=== PATIENT | female | born 1970 | race Caucasian/White ===

== ENCOUNTER 2018-05-12 13:49 | Inpatient (IN) | payer MEDICAID, OTHER ==
[2018-05-12 13:55] VITALS: BMI 32.2
--- NOTE | 2018-05-12 14:13 | ED PDOC ---
Arrival/HPI - General Time Seen by Provider: 05/12/18 14:07 Historian: Patient - History of Present Illness Narrative History of Present Illness (Text): 05/12/18 14:12 47 year old female, whose past medical history includes hypertension and asthma, presents to the emergency department complaining of asthma attack for the past 2 days. Patient states her breathing has worsened since yesterday and notes associated cough. She saw her PMD earlier today who gave her a steroid shot prior to arrival here in the emergency department. Patient notes she uses a ventilator at home for her asthma, but states it has never been this bad. She denies prior intubation or admission to the hospital for her asthma attacks. Patient denies any fevers, chills, headache, dizziness, chest pain, abdominal pain, nausea, vomiting, diarrhea, back pain, neck pain, or any other complaints. PMD: Dr. Beyer Time/Duration: < week (2 days) Symptom Onset: Gradual Symptom Course: Unchanged Activities at Onset: Light Context: Home Past Medical History - Provider Review Nursing Documentation Reviewed: Yes - Cardiac Hx Hypertension: Yes - Psychiatric Hx Psychophysiologic Disorder: No Hx Substance Use: No - Surgical History Hx Tubal Ligation: Yes Family/Social History - Physician Review Nursing Documentation Reviewed: Yes Family/Social History: No Known Family HX Smoking Status: Never Smoked Hx Alcohol Use: Yes Hx Substance Use: No Allergies/Home Meds Allergies/Adverse Reactions: Allergies ibuprofen [From Advil] Allergy (Verified 05/12/18 14:04) ANAPHYLAXIS Home Medications: Home Meds Medication Instructions Recorded Confirmed Amlodipine Besylate [Norvasc] 5 mg PO DAILY 03/30/15 05/12/18 Review of Systems - Physician Review All systems were reviewed & negative as marked: Yes - Review of Systems Constitutional: absent: Fevers Cardiovascular: absent: Chest Pain Physical Exam - Physical Exam Narrative Physical Exam (Text): 05/12/18 14:12 Constitutional: No acute distress. Head: Normocephalic. Atraumatic. Eyes: PERRL. ENT: Moist mucous membranes. No pharyngeal erythema or exudates. Neck: Supple. Cardiovascular: Regular rate. Chest: No tenderness. Respiratory: Clear to auscultation bilaterally. Diffuse wheezing. GI: Soft. Nontender. Nondistended. Back: No CVA tenderness. Musculoskeletal: No tenderness or swelling of extremities. Skin: No rash. Neurologic: Alert, no focal deficit. Medical Decision Making ED Course and Treatment: 05/12/18 14:12 Impression: 47 year old female, who presents to the emergency department complaining of asthma attack. Plan: -- Duoneb -- Reassess and disposition Prior Visits: Notes and results from previous visits were reviewed. Progress Notes: Patient declined Chest X-Ray. 05/12/18 19:40 Patient continues to have dyspnea after treatment, Dr. Beyer accepts patient to her service. Now agreeable to XR. - Scribe Statement The provider has reviewed the documentation as recorded by the Scribe Deana Barnett Provider Scribe Attestation: All medical record entries made by the Scribe were at my direction and personally dictated by me. I have reviewed the chart and agree that the record accurately reflects my personal performance of the history, physical exam, medical decision making, and the department course for this patient. I have also personally directed, reviewed, and agree with the discharge instructions and disposition. Disposition/Present on Arrival - Present on Arrival Any Indicators Present on Arrival: No History of DVT/PE: No History of Uncontrolled Diabetes: No Urinary Catheter: No History Surgical Site Infection Following: None - Disposition Have Diagnosis and Disposition been Completed?: Yes Diagnosis: Asthma exacerbation Disposition: HOSPITALIZED Disposition Time: 16:48 Patient Plan: Observation, Telemetry Condition: GOOD
[2018-05-12] MEDS: Albuterol-Ipratrop 3 mg / 0.5 (3 ml) UD IH SCH ×4 (14:37→21:10)
--- NOTE | 2018-05-12 17:43 | CARD ---
APPROVED REPORT Date of service: 05/12/2018 EKG Measurement Heart [id number] <Conclusion> Normal sinus rhythm Voltage criteria for left ventricular hypertrophy Abnormal ECG
[2018-05-12] MEDS ORDERED: Albuterol-Ipratrop 3 mg / 0.5 (3 ml) UD IH PRN (18:05)
[2018-05-12] MEDS: MethylPREDNISolone 40 mg Vial IV SCH (19:22)
[2018-05-12 19:59] LABS: BASO # 0.05 K/mm3 (0.0-2.0); BASO % 0.4 % (0.0-3.0); EOS # 0.1 (0.0-0.7); EOS % 0.8 % (1.5-5.0); LYMPH # 1.8 (1.2-3.4); LYMPH % 14.2 % (22.0-35.0); MEAN CELL VOLUME 80.4 fl (80.0-105.0); MEAN CORPUSCULAR HEMOGLOBIN 26.3 pg (25.0-35.0); MEAN CORPUSCULAR HGB CONC 32.6 g/dl (31.0-37.0); MEAN PLATELET VOLUME 9.1 fl (7.0-11.0); MONO # 0.3 (0.1-0.6); MONO % 2.3 % (1.0-6.0); RBC 4.19 10^6/uL (3.5-6.1); RED CELL DISTRIBUTION WIDTH 17.7 % (11.5-14.5); WHITE BLOOD COUNT 12.4 10^3/uL (4.5-11.0)
[2018-05-12 20:11] LABS: ALB/GLOB RATIO 1.1 (1.1-1.8); ALBUMIN 4.3 g/dL (3.0-4.8); ALT/SGPT 16 U/L (7-56); AST/SGOT 34 U/L (14-36); BLOOD UREA NITROGEN 20 mg/dL (7-21); CALCIUM 9.7 mg/dL (8.4-10.5); GFR NON-AFRICAN AMERICAN > 60
--- NOTE | 2018-05-12 23:23 | HP ---
DATE OF EXAM: 05/12/2018 HISTORY OF PRESENT ILLNESS: Patient is 47 years old. She was seen earlier in the office. She came with shortness of breath. Patient states she went to her work, and she got increasingly short of breath and she attributes this to going out 2 days ago. Since then, she has been having some shortness of breath. She has been using some nebulizer with minimal relief. Today, it got worse. So, despite of not feeling well, she went to school, and they sent her home and on her way she stopped by, she was very short of breath. She was wheezing. She was given inhaler. She was given mg of Solu-Medrol with no relief. So, she called her friend, who brought her to emergency room for further evaluation. Denies any chest pain. Does have shortness of breath, has cough. Patient states she never had this kind of attack before. Patient states that she has nebulizer machine at home, and has been using with no significant relief. PAST MEDICAL HISTORY: Significant for hypertension and history of asthma. ALLERGIES: SHE IS ALLERGIC TO IBUPROFEN, SHE GETS RASH. MEDICATIONS AT HOME: She is on amlodipine 5 mg daily. She is on Proventil inhaler. 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 PHYSICAL EXAMINATION: GENERAL: She is awake and alert, short of breath. VITAL SIGNS: She is afebrile, pulse 80, and respirations 24. LUNGS: Bilateral expiratory rhonchi. HEART: S1 and S2, audible. Tachycardic. ABDOMEN: Soft and nontender. No rebound. No guarding. NEUROLOGIC: Patient is awake and alert, able to communicate. DIAGNOSTIC DATA: EKG; she has normal sinus rhythm with left-sided ventricular hypertrophy with pulse rate of 82. ASSESSMENT: 1. Asthma exacerbation. 2. Bronchospasm. 3. Asthmatic bronchitis. 4. Hypertension. PLAN: Patient will be admitted. We will give her IV steroid, give her nebulizer treatment. We will resume her medication. We will follow up the patient in a.m. Dano Beyer MD [facility] # [id number]
[2018-05-13] MEDS: Albuterol-Ipratrop 3 mg / 0.5 (3 ml) UD IH SCH ×5 (01:34→23:24)
[2018-05-13] MEDS: MethylPREDNISolone 40 mg Vial IV SCH ×3 (02:07→18:45)
[2018-05-13] MEDS: Pantoprazole 40 mg EC Tab PO SCH (06:48)
--- NOTE | 2018-05-13 07:53 | RAD ---
Date of service: 05/12/2018 HISTORY: sob COMPARISON: No prior. FINDINGS: LUNGS: No active pulmonary disease. PLEURA: No significant pleural effusion identified, no pneumothorax apparent. CARDIOVASCULAR: No aortic atherosclerotic calcification present. Normal cardiac size. No pulmonary vascular congestion. OSSEOUS STRUCTURES: No significant abnormalities. VISUALIZED UPPER ABDOMEN: Normal. OTHER FINDINGS: None. IMPRESSION: No acute cardiopulmonary disease appreciated.
[2018-05-13] MEDS: Azithromycin 500MG/NS 250ml 500 MG/250 ML BAG IVPB SCH (13:12)
--- NOTE | 2018-05-13 14:52 | PN ---
DATE: 05/13/2018 SUBJECTIVE: The patient is a 47-year-old, seen and examined. Seems to be doing little better. Still has cough, congestion and wheezing, but her shortness of breath has improved somewhat. PHYSICAL EXAMINATION: VITAL SIGNS: She is afebrile, pulse 85, respiration 20 and blood pressure 125/67. LUNGS: Bilateral expiratory rhonchi. HEART: S1 and S2, audible. ABDOMEN: Soft and nontender. No rebound. No guarding. NEUROLOGIC: The patient is awake, alert and able to communicate. Complaining of having in the right decubital area that seems to be bothering her, cannot flex . ASSESSMENT: 1. Upper respiratory tract infection. 2. Asthma exacerbation. 3. Severe bronchospasm. 4. History of hypertension. PLAN: Cardiology-reyes, the patient is stable. I will discontinue her telemetry. We will add Rocephin and Zithromax and we will continue IV steroids and we will reevaluate in a.m. if patient remain stable, we will make a discharge plan in a.m. Dano Beyer MD
[2018-05-13] MEDS: cefTRIAXone 1 gm 1 GM/100 ML BAG IVPB SCH (15:27)
[2018-05-14] MEDS: MethylPREDNISolone 40 mg Vial IV SCH ×3 (02:31→17:24)
[2018-05-14] MEDS: Albuterol-Ipratrop 3 mg / 0.5 (3 ml) UD IH SCH ×5 (03:55→20:37)
[2018-05-14] MEDS: Pantoprazole 40 mg EC Tab PO SCH (06:00)
[2018-05-14] MEDS: Promethazine DM 6.25 mg-15 mg/5 ml Syrup PO PRN ×2 (09:52→16:45)
[2018-05-14] MEDS: cefTRIAXone 1 gm 1 GM/100 ML BAG IVPB SCH (09:52)
[2018-05-14] MEDS: Azithromycin 500MG/NS 250ml 500 MG/250 ML BAG IVPB SCH (11:38)
--- NOTE | 2018-05-14 15:06 | CT ---
Date of service: 05/14/2018 PROCEDURE: CT Chest without contrast HISTORY: sob COMPARISON: Chest x-ray 05/12/2018 TECHNIQUE: Contiguous axial images were obtained through the chest without intravenous contrast enhancement. Sagittal and coronal reconstructions were performed. Radiation dose: Total exam DLP = 318.47 mGy-cm. This CT exam was performed using one or more of the following dose reduction techniques: Automated exposure control, adjustment of the mA and/or kV according to patient size, and/or use of iterative reconstruction technique. FINDINGS: LUNGS: No focal consolidation is seen. Mild bibasilar atelectasis. The trachea and major segmental bronchi are patent. MEDIASTINUM: Heart size is within normal limits. Thoracic aorta is normal in caliber. There is no significant axillary, mediastinal, or hilar lymphadenopathy. PLEURA: No pleural effusion is identified. BONES: No acute fracture identified. Mild degenerative changes noted of the spine. UPPER ABDOMEN: Visualized upper abdominal viscera are grossly unremarkable. OTHER FINDINGS: Small calcifications noted in the region of the right rotator cuff, likely calcific tendinopathy. Visualized portions of the thyroid gland are unremarkable. IMPRESSION: No acute cardiopulmonary process seen.
--- NOTE | 2018-05-14 17:54 | PN ---
DATE: 05/14/2018 SUBJECTIVE: The patient is a 47 year old, seen and examined. Currently getting nebulizer treatment, still short of breath. Had audible wheezing very tight. Unable to wean off from her IV steroid. Still complained of persistent cough. PHYSICAL EXAMINATION VITAL SIGNS: She is afebrile, pulse 94, respirations 20, blood pressure 120/80. LUNGS: Bilateral expiratory rhonchi, diffused both posteriorly and interiorly bilateral. HEART: S1 and S2 audible. ABDOMEN: Soft and nontender. No rebound. No guarding. NEUROLOGIC: The patient is awake and alert, able to communicate. ASSESSMENT AND PLAN: 1. Asthma exacerbation. 2. Severe bilateral bronchospasm. 3. History of hypertension. PLAN: I will continue the patient on IV steroids. I will add Claritin and Singulair. Ordered CT scan of the chest without IV contrast. We will reevaluate the patient in a.m. Dano Beyer MD
[2018-05-15] MEDS: Albuterol-Ipratrop 3 mg / 0.5 (3 ml) UD IH SCH ×6 (01:08→20:30)
[2018-05-15] MEDS: MethylPREDNISolone 40 mg Vial IV SCH ×3 (01:28→17:26)
[2018-05-15] MEDS: Promethazine DM 6.25 mg-15 mg/5 ml Syrup PO PRN ×3 (01:28→23:17)
[2018-05-15] MEDS: Pantoprazole 40 mg EC Tab PO SCH (05:36)
[2018-05-15] MEDS: cefTRIAXone 1 gm 1 GM/100 ML BAG IVPB SCH (10:16)
[2018-05-15] MEDS ORDERED: Acetylcysteine 20% Inhal Sol (30ml) IH SCH (11:45)
[2018-05-15] MEDS: Azithromycin 500MG/NS 250ml 500 MG/250 ML BAG IVPB SCH (11:59)
--- NOTE | 2018-05-15 13:55 | PN ---
DATE: 05/15/2018 SUBJECTIVE: The patient is a 47-year-old seen and examined, doing same. She still has cough and congestion with wheezing. She states she cannot cough up phlegm, seems to be short of breath. Optimal medical treatment. PHYSICAL EXAMINATION: VITAL SIGNS: She is afebrile, pulse 83, respirations 18, blood pressure 148/85. LUNGS: Bilateral expiratory rhonchi. HEART: S1 and S2 audible. ABDOMEN: Soft and nontender. No rebound. No guarding. NEUROLOGIC: The patient is awake, alert, and oriented. Communicative. LABORATORY DATA: There is no new lab available today. DIAGNOSTIC DATA: CT scan of the chest is unremarkable. ASSESSMENT: 1. Asthma exacerbation. 2. Hypertension. 3. Bronchospasm. PLAN: Currently, the patient is on Claritin. She is getting nebulizer treatment. She has been started on Mucomyst. She is on Protonix. She is on IV Rocephin, methylprednisolone, and Zithromax. Dano Beyer MD
[2018-05-15] MEDS: Acetylcysteine 20% Inhal Soln (4ml) IH SCH ×2 (15:36→20:30)
[2018-05-16] MEDS: Albuterol-Ipratrop 3 mg / 0.5 (3 ml) UD IH SCH ×6 (00:30→21:02)
[2018-05-16] MEDS: MethylPREDNISolone 40 mg Vial IV SCH (02:31)
[2018-05-16] MEDS: Acetylcysteine 20% Inhal Soln (4ml) IH SCH ×4 (04:30→21:01)
[2018-05-16] MEDS: Pantoprazole 40 mg EC Tab PO SCH (05:51)
[2018-05-16] MEDS: Promethazine DM 6.25 mg-15 mg/5 ml Syrup PO PRN ×2 (05:51→17:02)
[2018-05-16] MEDS: Budesonide 0.5 mg/2 ml Inhal Susp UD IH SCH ×2 (07:18→21:02)
[2018-05-16] MEDS: cefTRIAXone 1 gm 1 GM/100 ML BAG IVPB SCH (09:48)
[2018-05-16] MEDS: MethylPREDNISolone 40 mg Vial IVP SCH ×2 (09:48→21:38)
--- NOTE | 2018-05-16 11:19 | CON ---
DATE OF CONSULTATION: 05/16/2018 PULMONARY CONSULTATION REASON FOR PULMONARY CONSULTATION: Asthma. REFERRING PHYSICIAN FOR THIS PULMONARY CONSULTATION: Dr. Beyer. HISTORY OF PRESENT ILLNESS: The patient is a 47-year-old female, with past medical history significant for asthma, hypertension, who presented to [facility] - originally on 05/12/2018 - with a 2-day history of worsening shortness of breath at rest, dyspnea on exertion, cough, and minimal sputum production. There is no history of chest pain, coughing up of blood, or chest pain - brought on with deep respirations. There is no history of temperatures, chills, or infectious exposure. There is no history of night sweats, weight loss or appetite change prior to the above events. No history of calf pains. No history of syncope or diaphoresis. No history of recent travel or trauma. REVIEW OF SYSTEMS: The patient denies runny nose or nasal congestion. There is no history of nausea, vomiting or diarrhea. There are no acute urinary symptoms. Rest of the review of systems is negative. ALLERGIES: IBUPROFEN. SOCIAL HISTORY: Negative for tobacco and negative for alcohol. FAMILY HISTORY: Positive for asthma(mother). HOME MEDICATIONS - Only amlodipine is listed. PHYSICAL EXAMINATION: GENERAL: The patient appears comfortable this morning. She is not short of breath at rest. She is not using accessory muscles for breathing. VITAL SIGNS: Last temperature recorded is 98.7, pulse this morning is 80, respiratory rate 18/20, blood pressure 132/87. Oxygen saturation on room air is 94-98%. HEENT: Normocephalic, atraumatic. NECK: No JVD. CARDIOVASCULAR: Positive S1, S2. No S3, gallop. LUNGS: Decreased breath sounds at the bases. Minimal rhonchi. A few respiratory wheezes are also appreciated. EXTREMITIES: No clubbing, cyanosis or edema. Calves are nontender to palpation. GI: Abdomen is soft, nontender and nondistended. Bowel sounds are positive. SKIN: No acute rash. NEUROLOGIC: Exam limited at the present time. PERTINENT LABORATORY DATA: CT scan of the chest was done on 05/14/2018. There are minimal basilar changes. There is no mass, nodule or focal consolidation seen. There is no lymphadenopathy. Complete metabolic profile: All values are within normal limits. CBC: White count 12.4K, hemoglobin 11, hematocrit 33.7, platelets of 569,000. IMPRESSION: 1. Acute bronchitis. 2. Asthma. 3. Mild anemia. 4. Hypertension. PLAN: I did discuss the case with the night nurse at length. I have also reviewed the chart at length, and discussed the case with the patient at length. The patient presented to [facility] - originally on 05/12/2018 - with a 2-day history of worsening pulmonary symptoms. I did review the CT scan of the chest. There is no acute cardiopulmonary process noted. On physical exam, the patient does remain in mild bronchospasm. However, there is no significant alveolar-arterial gradient. I will continue with the current nebulizer treatments and add inhaled steroids this morning. I will also try decreasing the intravenous steroids. Again, there is no significant bronchospasm on physical exam. The patient remains on antibiotic therapy. There are no temperatures noted. The patient does state to feeling much better over the past few days. Her cough is much less. She is clinically improved. Additional pulmonary intervention will be based on the clinical status of the patient. I will discuss the above with the attending physician later this morning. Thank you very much for this pulmonary consultation. Stephon Peres MD [facility]
[2018-05-16] MEDS: Azithromycin 500MG/NS 250ml 500 MG/250 ML BAG IVPB SCH (13:13)
--- NOTE | 2018-05-16 20:33 | PN ---
DATE: 05/16/2018 SUBJECTIVE: The patient has no complaints of any chest pain. She does have shortness of breath, but states it is better. She has no headaches or dizziness. PHYSICAL EXAMINATION: VITAL SIGNS: Temperature is 98.5, pulse of 97, blood pressure is 117/70, and respirations are 18. GENERAL: The patient is lying in bed, flat, comfortable. HEENT: No oral lesion. Anicteric sclerae. Moist mucosa. NECK: No JVD, adenopathy, or thyromegaly. CARDIOVASCULAR: S1 and S2, regular. No murmurs, rubs, or gallops. LUNGS: Clear to auscultation bilaterally. No wheeze, rales, or rhonchi. ABDOMEN: Bowel sounds are positive, soft, nontender and nondistended. EXTREMITIES: No cyanosis, clubbing or edema. LABORATORY DATA: White count of 12.4 and hemoglobin 11. Creatinine 0.7. ASSESSMENT: 1. Acute asthma exacerbation. 2. Hypertension. 3. . PLAN: The patient is currently on acetylcysteine. She is on as an antihistamine for asthma. She is on Norvasc for her hypertension. The patient is on Solu-Medrol for her COPD. She is on Zithromax for antibiotics. She is on a regular diet. The patient has blood cultures that have been negative. I will order labs for tomorrow. She was seen by Dr. Peres from Pulmonary, I appreciate his input. Antonio Peoples MD
--- NOTE | 2018-05-16 22:31 | CP.PCM.PCO ---
<Hardik Pearson L - Last Filed: 05/16/18 22:36> Addendum Addendum: 05/16/18 22:31 Paged by nurse Patient noted to hit the side of her head while in the bathroom due to feeling lightheaded On examination, vital signs are stable Patient is atraumatic, normocephalic, AAOx3 with no focal neurologic deficits Patient refused CT head scan Risks and benefits discussed Will continue to monitor Hardik Pearson PGY-1 <Edwina Thibodeaux - Last Filed: 05/17/18 06:37> Attending/Attestation - Attestation I have personally seen and examined this patient.: No I have fully participated in the care of the patient.: No I have reviewed all pertinent clinical information: No
[2018-05-17] MEDS: Acetylcysteine 20% Inhal Soln (4ml) IH SCH ×3 (01:09→13:40)
[2018-05-17] MEDS: Albuterol-Ipratrop 3 mg / 0.5 (3 ml) UD IH SCH ×5 (01:09→16:00)
[2018-05-17] MEDS: Pantoprazole 40 mg EC Tab PO SCH (06:41)
[2018-05-17] MEDS: Promethazine DM 6.25 mg-15 mg/5 ml Syrup PO PRN ×2 (07:06→15:01)
[2018-05-17] MEDS: Budesonide 0.5 mg/2 ml Inhal Susp UD IH SCH (07:24)
--- NOTE | 2018-05-17 07:28 | PN ---
DATE: 05/17/2018 PULMONARY PROGRESS NOTE SUBJECTIVE: The patient appears quite comfortable this morning. She is not short of breath at rest. PHYSICAL EXAMINATION VITAL SIGNS: Last temperature recorded is 97.5, pulse this morning is 88, respiratory rate 18/20, blood pressure 151/84. Oxygen saturation on room air is 96%. HEENT: Normocephalic, atraumatic. No JVD. CARDIOVASCULAR: Positive S1, S2. No S3 gallop. LUNGS: Improved breath sounds at the bases. Minimal/less rhonchi. No wheezing. GI: Abdomen is soft, nontender and nondistended. Bowel sounds are positive. EXTREMITIES: No clubbing, cyanosis or edema. Calves are nontender to palpation. SKIN: No acute rash. NEUROLOGIC: Limited at the present time. IMPRESSION 1. Acute bronchitis. 2. Asthma. 3. Mild anemia. 4. Hypertension. PLAN: The patient appears very comfortable this morning. She is not short of breath at rest. She is still coughing, but less. She does state to feeling much better overall. On physical exam, her bronchospasm is certainly less. In addition, the oxygen saturation on room air is now 96%. I will continue with the current nebulizer treatments, inhaled steroids, and decrease the intravenous steroids this morning. The patient remains on antibiotic therapy. There are no temperatures noted. Repeat a.m. labs are pending. Clinical status of the patient appears significantly improved -- compared to the initial presentation. The patient is advised to be out of bed as much as possible. Hopefully, we can change to oral therapy in the next 24 hours. I will discuss the above with the attending physician. Stephon Peres MD MTDD
[2018-05-17 07:29] LABS: HEMOGLOBIN 10.8 g/dL (12.0-16.0); MEAN CELL VOLUME 82.2 fl (80.0-105.0); MEAN CORPUSCULAR HEMOGLOBIN 26.3 pg (25.0-35.0); MEAN PLATELET VOLUME 8.9 fl (7.0-11.0); RBC 4.11 10^6/uL (3.5-6.1); RED CELL DISTRIBUTION WIDTH 18.4 % (11.5-14.5); WHITE BLOOD COUNT 18.3 10^3/uL (4.5-11.0)
[2018-05-17 08:05] LABS: ALB/GLOB RATIO 0.9 (1.1-1.8); ALBUMIN 3.2 g/dL (3.0-4.8); ALT/SGPT 19 U/L (7-56); AST/SGOT 35 U/L (14-36); BLOOD UREA NITROGEN 18 mg/dL (7-21); CALCIUM 8.5 mg/dL (8.4-10.5); GFR NON-AFRICAN AMERICAN > 60
[2018-05-17 08:45] VITALS: RESP 18; O2SAT 95
[2018-05-17] MEDS: cefTRIAXone 1 gm 1 GM/100 ML BAG IVPB SCH (09:53)
[2018-05-17] MEDS ORDERED: MethylPREDNISolone 40 mg Vial IVP SCH (10:00)
[2018-05-17] MEDS: Azithromycin 500MG/NS 250ml 500 MG/250 ML BAG IVPB SCH (11:27)
[2018-05-17 14:56] VITALS: BP 130/83; PULSE 91; TEMP 98.1
--- NOTE | 2018-05-17 21:34 | DS ---
HISTORY OF PRESENT ILLNESS: The patient is a 47-year-old, seen and examined, doing much better, and less shortness of breath. PHYSICAL EXAMINATION: VITAL SIGNS: She is afebrile, pulse 90, respirations 18, and blood pressure 152/93. LUNGS: Bilateral few expiratory rhonchi. HEART: S1 and S2 audible. ABDOMEN: Soft and nontender. No rebound. No guarding. NEUROLOGIC: The patient is awake and alert, able to communicate. LABORATORY DATA: WBC 18.3, hemoglobin 10.8, hematocrit 33.8, and platelet of 542. Chemistry; sodium 141, potassium 3.7, chloride 106, CO2 of 28, BUN 18, creatinine 0.7, and blood sugar of 124. ASSESSMENT: 1. Asthma exacerbation. 2. Hypertension. 3. Asthmatic bronchitis. 4. The patient had CT scan of the chest done that was unremarkable. PLAN: The patient will be discharged home. We will give her nebulizer treatment along with albuterol. We will give her tapering dose of steroid and she is advised to take Zyrtec at home. We will give her Pulmicort Respules and we will discharge her on Levaquin. Dano Beyer MD
== END 2018-05-17 18:29 | disposition home or self-care (01) | DRG 97 ==
LOC: ED 13:49 → ERH 17:25 → 2RNO 20:18 → 5RSO 05-13 18:07 → OBSVTOIN 05-14 12:29
PROVIDERS: ADMIT Internal Medicine; ATTEND Internal Medicine
DX: J45.901 Unspecified asthma with (acute) exacerbation (principal); I10 Essential (primary) hypertension; J06.9 Acute upper respiratory infection, unspecified; D64.9 Anemia, unspecified; Z88.6 Allergy status to analgesic agent; Z82.5 Family history of asthma and other chronic lower respiratory diseases